=== PATIENT | female | born 1975 | race Two or more races ===

== ENCOUNTER 2024-06-06 12:11 | Emergency (ER) | payer MEDICAID ==
[~2024-06-06] VITALS: Ht 157.5 cm; Wt 63.0 kg
[2024-06-06 12:18] VITALS: BP 132/92; TEMP 98.2
[2024-06-06] MEDS ORDERED: CETI-90 PO (12:24)
[2024-06-06 12:31] VITALS: O2SAT 97
== END 2024-06-06 12:31 | disposition home or self-care (01) ==
LOC: ER 12:11
DX: L23.9 Allergic contact dermatitis, unspecified cause (principal)

== ENCOUNTER 2024-09-12 09:06 | Emergency (ER) | payer MEDICAID ==
[~2024-09-12] VITALS: Ht 165.1 cm; Wt 63.5 kg
[~2024-09-12 09:06] MED LIST: CETI-90 PO
[2024-09-12] MEDS ORDERED: METO5TAB87 PO (09:19)
[2024-09-12 09:35] VITALS: BP 138/80; TEMP 98.6; O2SAT 99
== END 2024-09-12 09:35 | disposition home or self-care (01) ==
LOC: ER 09:10
DX: R10.84 Generalized abdominal pain (principal); Z79.899 Other long term (current) drug therapy